=== PATIENT | female | born 1990 | race American Indian/Alaskan Native ===

== ENCOUNTER 2017-11-18 09:16 | Emergency (ER) | payer SELFPAY ==
[2017-11-18 09:33] VITALS: BP 142/99
[2017-11-18] MEDS ORDERED: ZOFRAN ODT ONE (13:09)
[2017-11-18] MEDS ORDERED: TYLENOL ONE (13:09)
[2017-11-18] MEDS ORDERED: DUONEB *Not for PRN Use IH ONE ×2 (13:16→13:20)
--- NOTE | 2017-11-18 15:23 | Emergency Department Report ---
- General Chief Complaint: Upper Respiratory Infection Stated Complaint: FLU LIKE SYMPTOMS Time Seen by Provider: 11/18/17 15:07 Source: patient Mode of arrival: Ambulatory Limitations: No Limitations - History of Present Illness Initial Comments: 27-year-old female past medical history smoker presents with complaint of body aches cough intermittent nausea and fever and chills for 4days. Vision states she is having coughing fits which make her nauseous and she has had slightly productive yellowish sputum. Denies any sick contacts at this time. Speaking in full sentences. Denies chest pain. Denies headache blurry vision. Denies palpitations. Denies dysuria or hematuria. LMP now MD Complaint: fever, cough, rhinorrhea, nasal congestion, sinus pain Onset/Timin -: days(s) Severity: moderate Associated Symptoms: sore throat, cough, nausea Treatments Prior to Arrival: none, "cold medicine" - Related Data Home Medications Medication Instructions Recorded Confirmed Last Taken levETIRAcetam [Keppra] 750 mg PO BID 09/30/13 07/25/15 07/25/15 750 Vitamin 1 tab PO DAILY 07/25/15 07/25/15 Unknown Previous Rx's Medication Instructions Recorded Last Taken Type HYDROcodone/APAP 5-325 [[place] 1 each PO Q6HR PRN #20 tablet 07/26/15 Unknown Rx 5/325] ALBUTEROL Inhaler [ProAir HFA 2 puff IH QID PRN #1 inhalation 05/08/16 Unknown Rx Inhaler] Ibuprofen [Motrin 800 MG tab] 800 mg PO Q8HR PRN #14 tablet 05/08/16 Unknown Rx Promethazine /Codeine 5 ml PO Q6H PRN #90 ml 05/08/16 Unknown Rx [Phenergan/Codeine 6.25-10 mg/5Ml] guaiFENesin [Mucinex] 600 mg PO Q6HR #20 tab.er.12h 05/08/16 Unknown Rx Allergies Allergy/AdvReac Type Severity Reaction Status Date / Time No Known Allergies Allergy Verified 07/24/15 18:04 ED Review of Systems ROS: Stated complaint: FLU LIKE SYMPTOMS Other details as noted in HPI Constitutional: malaise. denies: chills, fever Eyes: denies: eye pain, eye discharge, vision change ENT: denies: ear pain, throat pain Respiratory: cough. denies: shortness of breath, wheezing Cardiovascular: denies: chest pain, palpitations Endocrine: no symptoms reported Gastrointestinal: denies: abdominal pain, nausea, diarrhea Genitourinary: denies: urgency, dysuria, discharge Musculoskeletal: denies: back pain, joint swelling, arthralgia Skin: denies: rash, lesions Neurological: denies: headache, weakness, paresthesias Psychiatric: denies: anxiety, depression Hematological/Lymphatic: denies: easy bleeding, easy bruising ED Past Medical Hx - Past Medical History Hx Hypertension: No Hx Congestive Heart Failure: No Hx Diabetes: No Hx Deep Vein Thrombosis: No Hx Renal Disease: No Hx Sickle Cell Disease: No Hx Seizures: Yes (last seizure jan 18 2015) Hx Asthma: No Hx COPD: No Hx HIV: No - Surgical History Past Surgical History?: No - Social History Smoking Status: Current Every Day Smoker Substance Use Type: None - Medications Home Medications: Home Medications Medication Instructions Recorded Confirmed Last Taken Type levETIRAcetam [Keppra] 750 mg PO BID 09/30/13 07/25/15 07/25/15 History 750 Vitamin 1 tab PO DAILY 07/25/15 07/25/15 Unknown History HYDROcodone/APAP 5-325 [[place] 1 each PO Q6HR PRN #20 tablet 07/26/15 Unknown Rx 5/325] ALBUTEROL Inhaler [ProAir HFA 2 puff IH QID PRN #1 inhalation 05/08/16 Unknown Rx Inhaler] Ibuprofen [Motrin 800 MG tab] 800 mg PO Q8HR PRN #14 tablet 05/08/16 Unknown Rx Promethazine /Codeine 5 ml PO Q6H PRN #90 ml 05/08/16 Unknown Rx [Phenergan/Codeine 6.25-10 mg/5Ml] guaiFENesin [Mucinex] 600 mg PO Q6HR #20 tab.er.12h 05/08/16 Unknown Rx ED Physical Exam - General Limitations: No Limitations General appearance: alert, in no apparent distress - Head Head exam: Present: atraumatic, normocephalic - Eye Eye exam: Present: normal appearance, PERRL, EOMI - ENT ENT exam: Present: mucous membranes moist - Neck Neck exam: Present: normal inspection - Respiratory Respiratory exam: Present: normal lung sounds bilaterally (slightly coarse breath sounds but no wheezing or rhonchi bilaterally). Absent: respiratory distress - Cardiovascular Cardiovascular Exam: Present: regular rate, normal rhythm. Absent: systolic murmur, diastolic murmur, rubs, gallop - GI/Abdominal GI/Abdominal exam: Present: soft, normal bowel sounds - Extremities Exam Extremities exam: Present: normal inspection - Back Exam Back exam: Present: normal inspection - Neurological Exam Neurological exam: Present: alert, oriented X3 - Psychiatric Psychiatric exam: Present: normal affect, normal mood - Skin Skin exam: Present: warm, dry, intact, normal color. Absent: rash ED Course Vital Signs 11/18/17 11/18/17 11/18/17 09:22 13:24 13:34 Temperature 98.7 F Pulse Rate 91 H Pulse Rate [ 93 H 106 H Anterior Bilateral Throughout] Respiratory 20 Rate Respiratory 24 24 Rate [Anterior Bilateral Throughout] Blood Pressure 142/99 O2 Sat by Pulse 98 Oximetry ED Medical Decision Making - Medical Decision Making A/P: Acute bronchitis, possibly viral in etiology, flulike illness 1-I evaluated this patient during [facility] downtime 2-patient felt significant relief of cough with nebulizer treatment 3-I reviewed patient's 2 view chest x-ray. It appears mostly clear although there may be some right lower lobe early infiltrates. We'll treat patient empirically with azithromycin also considering that she is a heavy smoker. 4-albuterol when necessary, Motrin when necessary, Mucinex when necessary 5- Patient tolerating by mouth fluid and food without difficulty 6-Motrin when necessary, Mucinex when necessary, Tessalon Perles when necessary. I offered patient Tamiflu. Patient declined at this time taking it after discussion of side effects benefits and risks of taking Tamiflu. I educated patient and provided literature on flu management https:// www.[employer]/contents/sleyjucpr-jlhzxjwq-ngp-lnsoauofg-jelljp-dgk-basics/ print?source=see_link 7- I advised patient to follow up with primary care or to return to the ED for any inability to tolerate by mouth fluid or food persistent nausea and vomiting severe fevers and chills or fevers persistently above 100.4F despite antipyretic use, severe lethargy. Patient stated he understood my instructions. I advised patient to remain well-hydrated. 8-: VS at discharge o2 sat 99% on RA, HR 98, BP 143/79, RR18 Critical care attestation.: If time is entered above; I have spent that time in minutes in the direct care of this critically ill patient, excluding procedure time. ED Disposition Clinical Impression: Flu-like symptoms Acute bronchitis Qualifiers: Bronchitis organism: unspecified organism Qualified Code(s): J20.9 - Acute bronchitis, unspecified Disposition: DC-01 TO HOME OR SELFCARE Is pt being admited?: No Does the pt Need Aspirin: No Condition: Stable Instructions: Acute Bronchitis (ED) Referrals: PRIMARY CARE, [Primary Care Provider] - 3-5 Days Time of Disposition: 16:00
--- NOTE | 2017-11-19 04:05 | XRay Report ---
FINAL REPORT EXAM: XR CHEST ROUTINE 2V HISTORY: WORSENING COUGH TECHNIQUE: PA and lateral chest radiographs PRIORS: None. FINDINGS: No mediastinal shift. Cardiac silhouette is not enlarged. No pneumothorax or effusion. Focal right lower lung opacity. No acute skeletal finding. IMPRESSION: Focal right lower lung airspace disease.
== END 2017-11-18 16:00 | disposition home or self-care (01) ==
LOC: ED 09:16
DX: J11.1 Influenza due to unidentified influenza virus with other respiratory manifestations (principal); J20.9 Acute bronchitis, unspecified; F17.200 Nicotine dependence, unspecified, uncomplicated
CPT/HCPCS: 71046; 87400; 94640; Q0162

== ENCOUNTER 2019-10-31 12:56 | Emergency (ER) | payer SELFPAY ==
--- NOTE | 2019-10-31 13:10 | Event Note ---
ED Screening Note Date of service: 10/31/19 Time: 13:03 ED Screening Note: 29 y o f with a hx of seizures on keppra presents to Ed s/p 3 seizural episode keppra 1000mg BID no meds x 5 days This initial assessment/diagnostic orders/clinical plan/treatment(s) is/are subject to change based on patients health status, clinical progression and re- assessment by fellow clinical providers in the ED. Further treatment and workup at subsequent clinical providers discretion. Patient/guardian urged not to elope from the ED as their condition may be serious if not clinically assessed and managed. Initial orders include: labs new neuro specialist refferal
[2019-10-31 13:20] VITALS: BP 106/88
[2019-10-31 13:56] LABS: Hematocrit 40.3 % (30.3-42.9); Hemoglobin 13.5 gm/dl (10.1-14.3); Mean Corpuscular HGB Conc 34 % (30-34); Mean Corpuscular Volume 94 fl (79-97); Platelet Count 201 K/mm3 (140-440); Red Blood Count 4.29 M/mm3 (3.65-5.03); Red Cell Distribution Width 15.2 % (13.2-15.2)
[2019-10-31 14:07] LABS: BUN/Creatinine Ratio 14; Blood Urea Nitrogen 10 mg/dL (7-17); Calcium 9.2 mg/dL (8.4-10.2); Hemolysis Index 10
== END 2019-10-31 19:40 | disposition left against medical advice (07) ==
LOC: ED 12:56
DX: R56.9 Unspecified convulsions (principal); Z53.21 Procedure and treatment not carried out due to patient leaving prior to being seen by health care provider
CPT/HCPCS: 36415; 80048; 85027